=== PATIENT | male | born 1955 | race Hispanic/Latino ===

== ENCOUNTER 2018-09-12 06:02 | Observation (INO) | payer MEDICARE ==
[2018-09-11 11:53] LABS: BASOPHILS # (AUTO) 0.1 (0.0-0.1); BASOPHILS % 0.8 % (0.0-1.0); EOSINOPHILS # (AUTO) 0.2 (0.0-0.4); EOSINOPHILS % 1.9 % (0.0-6.0); HEMATOCRIT 44.6 % (38.2-49.6); HEMOGLOBIN 15.4 g/dL (14.0-18.0); LYMPHOCYTES # (AUTO) 1.3 (1.0-3.2); LYMPHOCYTES % 16.5 % (18.0-39.1); MEAN CORPUSCULAR HEMOGLOBIN 31.6 pg (28-32); MEAN CORPUSCULAR HGB CONC 34.5 g/dL (31-35); MEAN CORPUSCULAR VOLUME 91.6 fL (81-99); MONOCYTES # (AUTO) 0.5 (0.2-0.8); MONOCYTES % 5.8 % (4.4-11.3); NEUTROPHILS # (AUTO) 5.8 (2.1-6.9); NEUTROPHILS % 74.5 % (38.7-80.0); PLATELET COUNT 321 x10e3/uL (140-360); RED BLOOD COUNT 4.87 x10e6/uL (4.3-5.7); RED CELL DISTRIBUTION WIDTH 12.8 % (11.7-14.4)
[2018-09-11 12:10] LABS: ANION GAP 13.3 mmol/L (8-16); BLOOD UREA NITROGEN 14 mg/dL (7-26); BUN/CREATININE RATIO 16 (6-25); CALCIUM 9.8 mg/dL (8.4-10.2); CARBON DIOXIDE 23 mmol/L (22-29); CHLORIDE 104 mmol/L (98-107); CREATININE, SERUM 0.86 mg/dL (0.72-1.25); EST GLOMERULAR FILTRATION RATE > 60 ML/MIN (60-); GLUCOSE 120 mg/dL (74-118); POTASSIUM 4.3 mmol/L (3.5-5.1); SODIUM 136 mmol/L (136-145)
--- NOTE | 2018-09-11 13:20 | Diagnostic Imaging Report ---
EXAMINATION: CHEST SINGLE (PORTABLE) INDICATION: Preoperative. COMPARISON: None FINDINGS: TUBES and LINES: None. LUNGS: Low lung volumes which decreases sensitivity and specificity for pathology. There are patchy opacities at the lung bases bilaterally. No evidence of pulmonary edema. PLEURA: No pleural effusion or pneumothorax. HEART AND MEDIASTINUM: The cardiomediastinal silhouette is unremarkable. There are atherosclerotic calcifications within the aorta. BONES AND SOFT TISSUES: No acute osseous abnormality. UPPER ABDOMEN: No free air under the diaphragm. IMPRESSION: Limited examination of low lung volumes. Patchy opacities in the lung bases may reflect atelectasis, although pneumonia is possible in the appropriate clinical setting. Recommend repeat chest radiograph in 6-8 weeks to assess for resolution. Signed by: Dr. Lay Vargas MD on 09/11/2018 1:17 PM
[~2018-09-12] VITALS: Ht 170.2 cm; Wt 98.0 kg
[~2018-09-12 06:02] MED LIST: SIMVASTATIN40 MG PO
--- OUTSIDE RECORDS SUMMARY | 2018-09-12 06:04 | XMS REPORT ---
Author Author [facility] Address Unknown Phone Unavailable Care Team Providers Care Vending Attendant Name Role Phone IVANA WOLFE Unavailable Unavailable Problems This patient has no known problems. Allergies, Adverse Reactions, Alerts This patient has no known allergies or adverse reactions. Medications This patient has no known medications. Encounters Start Date/Time End Date/Time Encounter Type Admission Type Attending [facility] Care Facility Care Department Encounter ID 2018-09-07 11:42:00 2018-09-07 11:42:00 Emergency E [facility] [id number] Results Test Description Test Time Test Comments Text Results Atomic Results Result Comments CHEST 2 VIEWS 2018-09-11 13:14:00 [place] [address] Patient Name: YUE DAVIS MR #: [id number] : 1955 Age/Sex: 62/M Req #: [id number] Adm Physician: Ordered by: IVANA WOLFE MD Report #: [id number] Location: OR Room/Bed: Procedure: [id number] DX/CHEST 2 VIEWS Exam Date: 09/11/18 Exam Time: 1200 REPORT STATUS: Signed EXAMINATION: CHEST SINGLE (PORTABLE) INDICATION: Preoperative. COMPARISON: None FINDINGS: TUBES and LINES: None. LUNGS: Low lung volumes which decreases sensitivity and specificity for pathology. There are patchy opacities at the lung bases bilaterally. No evidence of pulmonary edema. PLEURA: No pleural effusion or pneumothorax. HEART AND MEDIASTINUM: The cardiomediastinal silhouette is unremarkable. There are atherosclerotic calcifications within the aorta. BONES AND SOFT TISSUES: No acute osseous abnormality. UPPER ABDOMEN: No free air under the diaphragm. IMPRESSION: Limited examination of low lung volumes. Patchy opacities in the lung bases may reflect atelectasis, although pneumonia is possible in the appropriate clinical setting. Recommend repeat chest radiograph in 6-8 weeks to assess for resolution. Signed by: Dr. Maverick Mari MD on 09/11/2018 1:17 PM Dictated By: MAVERICK MARI MD [id number] Transcribed By: JOHN on 09/11/18 1317 COPY TO: IVANA WOLFE MD
--- OUTSIDE RECORDS SUMMARY | 2018-09-12 06:04 | XMS REPORT | Clinical Summary ---
Author Author [facility] Address Unknown Phone Unavailable Care Team Providers Care Cell Tester Name Role Phone Asked, No Pcp PCP Unavailable Allergies No Known Allergies Medications End Date Status Medication Sig Dispensed Refills Start Date Active simvastatin (ZOCOR) 20 MG Take 20 mg by 0 tablet mouth daily. Active amLODIPine (NORVASC) 2.5 TOME DANNY 3 02/04/201 mg tablet TABLETA POR 8 V?A ORAL TODOS LOS D? Active Problems Problem Noted Date Hematuria 02/23/2018 Encounters Care Team Description Date Type Specialty Kwaku Shields MD Hematuria, unspecified type 05/11/2018 Hospital Radiology Encounter Kwaku Shields MD Hematuria, unspecified type (Primary Dx) 04/26/2018 Transcribe Access Orders Isabelle Eldridge NP 02/23/2018 Anesthesia Urology Event Kwaku Shields MD CYSTOSCOPY WITH BILATERAL RETROGRADE PYELOGRAM 02/23/2018 Surgery Urology Kwaku Shields MD 02/23/2018 Hospital Urology Encounter Kwaku Shields MD Preop testing (Primary Dx) 02/22/2018 Pre-Admit Pre-Admission Testing Testing Appointment after 09/11/2017 Social History Date Tobacco Use Types Packs/Day Years Used Never Smoker Smokeless Tobacco: Never Used Alcohol Use Drinks/Week oz/Week Comments No Sex Assigned at Date Recorded Not on file Industry Job Start Date Occupation Not on file Not on file Not on file Travel End Travel History Travel Start No recent travel history available. Last Filed Vital Signs Time Taken Vital Sign Reading 02/23/2018 10:20 AM CDT Blood Pressure 142/64 02/23/2018 10:15 AM CDT Pulse 64 02/23/2018 10:20 AM CDT Temperature 36 C (96.8 F) 02/23/2018 10:20 AM CDT Respiratory Rate 17 02/23/2018 10:15 AM CDT Oxygen Saturation 96% - Inhaled Oxygen - Concentration 05/11/2018 4:08 PM [facility] Weight 95.3 kg (210 lb) 05/11/2018 4:08 PM RAG W[facility]ER Height 170.2 cm (5' 7") 05/11/2018 4:08 PM RAG WASHER Body Mass Index 32.89 Plan of Treatment Health Maintenance Due Date Last Done Comments COLON CANCER SCREENING 2004 SHINGLES VACCINES (#1) 2004 INFLUENZA VACCINE 12/06/2018 Procedures Comments Procedure Name Priority Date/Time Associated Diagnosis CT ABDOMEN W WO CONTRAST Routine 05/11/2018 Hematuria, unspecified PELVIS W WO CONTRAST 5:39 PM RAG W[facility]ER type ESTIMATED GFR Routine 05/11/2018 4:20 PM RAG WASHER POC CREATININE Routine 05/11/2018 4:20 PM RAG WASHER FL PYELOGRAM RETROGRADE Routine 02/23/2018 9:00 AM CDT WY AN ELECTIVE Routine 02/23/2018 SUPRAGLOTTIC AIRWAY 7:51 AM CDT Procedure Note - Magui Duncan CRNA - 02/23/2018 7:51 AM CDT Airway Date/Time: 02/23/2018 7:51 AM Performed by: MAGUI DUNCAN Authorized by: GORDO FAROOQ Location: OR Urgency: Elective Difficult Airway: No Anesthesio logist: GORDO FAROOQ Resident/C RNA/AA: MAGUI DUNCAN Preoxygena [place]ole[place] with 100% O2: Yes C-spine Precaution s Maintained Throughout : Yes Mask Ventilatio n: Not attempted Final Airway Type: Supraglott ic airway Final LMA: I-Gel LMA Size: 4 Number of Attempts at Approach: 1 Eyes taped after LOLR. Atraumatic insertion. Lips and teeth unchanged from preop CYSTOSCOPY 02/23/2018 Prostate cancer (HCC) 7:30 AM CDT Decreased testosterone level Special Needs EST 1HR POC GLUCOSE Routine 02/23/2018 7:01 AM CDT URINE CULTURE Routine 02/22/2018 10:55 AM CDT ECG PRE/POST OP Routine 02/22/2018 Preop testing 10:39 AM CDT URINALYSIS SCREEN AND Routine 02/22/2018 Preop testing MICROSCOPY, WITH REFLEX 10:24 AM CDT TO CULTURE ESTIMATED GFR Routine 02/22/2018 10:23 AM CDT HEMOGLOBIN A1C Routine 02/22/2018 Preop testing 10:23 AM CDT COMPREHENSIVE METABOLIC Routine 02/22/2018 Preop testing PANEL 10:23 AM CDT HC COMPLETE BLD COUNT Routine 02/22/2018 Preop testing W/AUTO DIFF 10:23 AM CDT after 09/11/2017 Results * CT Abdomen W Wo Contrast Pelvis W Wo Contrast (05/11/2018 5:39 PM RAG WASHER) Narrative Performed At EXAMINATION:CT ABDOMEN W WO CONTRAST PELVIS W WO CONTRAST [facility] CLINICAL HISTORY:R31.9 Hematuriaunspecified, R31.0 TECHNIQUE:Noncontrast images of the abdomen and pelvis were obtained. Subsequently, axial images of the abdomen and pelvis were obtained following intravenous administration of iodinated contrast. Multiphase postcontrast images including delayed images and coronal reformats archived and interpreted per CT urogram protocol. Sagittal computerized reformatted images were also obtained. All CT images were acquired using radiation dose lowering technique with automated exposure control and / or iterative reconstruction. COMPARISON: No IMPRESSION: ABDOMEN: 1. Precontrast images demonstrate a nonobstructive 8 mm stone in the upper pole right kidney, of mixed density, with calcium and uric acid density components. 2.No other urinary tract lithiasis identified, though the urinary bladder extends through a right inguinal hernia into the scrotum and beyond the [id number] on the precontrast images. No obstructive uropathy on either side. 3.No abnormal hyperdensity or calcification within either kidney. Moderate to severe fatty liver with sparing adjacent to gallbladder best appreciable on precontrast images. 4.Kidneys enhance symmetrically and normally bilaterally, with mild multifocal scarring bilaterally. No suspicious lesion identified. Symmetric contrast excretion bilaterally. Renal collecting systems and ureters bilaterally and straight nothing unusual, though a short segment of the mid to distal left ureter is not opacified by contrast material, limiting its evaluation. 5.The majority of the urinary bladder is located within the right hemiscrotum via a right inguinal hernia. Overall approximately 12.5 cm craniocaudal dimension of urinary bladder is present within the scrotum and inguinal canal. Wall thickening most pronounced at the level of the inguinal canal accentuated by collapsed state through this segment though no definite bladder mass. Coexistent perivesical stranding suggesting cystitis, can be correlated with urinalysis. TURP defect. Brachytherapy implants in the prostate gland which is diminutive in size. 6.Mild scarring and or atelectasis at lung base, clear. 7. Colonic diverticulosis most pronounced distally. Bowel loops otherwise grossly unremarkable without enteric contrast. 8.Spleen mildly enlarged, without focal lesion. 9.No focal hepatic lesion. Fatty infiltration and sparing as detailed above. 10.Gallbladder, bile ducts, pancreas, spleen, abdominal aorta demonstrates nothing unusual. PELVIS: 1. No free fluid or lymphadenopathy identified in the abdomen or pelvis. 2.Prostate gland and urinary bladder are discussed above. Seminal vesicles atrophic. 3.Visualized bones show no suspicious lesion. SUMMARY: Significant extension of the urinary bladder through right inguinal hernia and into the right hemiscrotum, with probable cystitis which can account for the hematuria and can be correlated with urinalysis. No definite bladder mass is detected. See above for details. A nonobstructive 8 mm mixed density right renal stone and other incidental findings see above. [facility]-[id number] Procedure Note [facility], Radiology Results Incoming - 05/11/2018 6:05 PM RAG WASHER EXAMINATION: CT ABDOMEN W WO CONTRAST PELVIS W WO CONTRAST CLINICAL HISTORY: R31.9 Hematuria unspecified, R31.0 TECHNIQUE: Noncontrast images of the abdomen and pelvis were obtained. Subsequently, axial images of the abdomen and pelvis were obtained following intravenous administration of iodinated contrast. Multiphase postcontrast images including delayed images and coronal reformats archived and interpreted per CT urogram protocol. Sagittal computerized reformatted images were also obtained. All CT images were acquired using radiation dose lowering technique with automated exposure control and / or iterative reconstruction. COMPARISON: No IMPRESSION: ABDOMEN: 1. Precontrast images demonstrate a nonobstructive 8 mm stone in the upper pole right kidney, of mixed density, with calcium and uric acid density components. 2. No other urinary tract lithiasis identified, though the urinary bladder extends through a right inguinal hernia into the scrotum and beyond the [id number] on the precontrast images. No obstructive uropathy on either side. 3. No abnormal hyperdensity or calcification within either kidney. Moderate to severe fatty liver with sparing adjacent to gallbladder best appreciable on precontrast images. 4. Kidneys enhance symmetrically and normally bilaterally, with mild multifocal scarring bilaterally. No suspicious lesion identified. Symmetric contrast excretion bilaterally. Renal collecting systems and ureters bilaterally and straight nothing unusual, though a short segment of the mid to distal left ureter is not opacified by contrast material, limiting its evaluation. 5. The majority of the urinary bladder is located within the right hemiscrotum via a right inguinal hernia. Overall approximately 12.5 cm craniocaudal dimension of urinary bladder is present within the scrotum and inguinal canal. Wall thickening most pronounced at the level of the inguinal canal accentuated by collapsed state through this segment though no definite bladder mass. Coexistent perivesical stranding suggesting cystitis, can be correlated with urinalysis. TURP defect. Brachytherapy implants in the prostate gland which is diminutive in size. 6. Mild scarring and or atelectasis at lung base, clear. 7. Colonic diverticulosis most pronounced distally. Bowel loops otherwise grossly unremarkable without enteric contrast. 8. Spleen mildly enlarged, without focal lesion. 9. No focal hepatic lesion. Fatty infiltration and sparing as detailed above. 10. Gallbladder, bile ducts, pancreas, spleen, abdominal aorta demonstrates nothing unusual. PELVIS: 1. No free fluid or lymphadenopathy identified in the abdomen or pelvis. 2. Prostate gland and urinary bladder are discussed above. Seminal vesicles atrophic. 3. Visualized bones show no suspicious lesion. SUMMARY: Significant extension of the urinary bladder through right inguinal hernia and into the right hemiscrotum, with probable cystitis which can account for the hematuria and can be correlated with urinalysis. No definite bladder mass is detected. See above for details. A nonobstructive 8 mm mixed density right renal stone and other incidental findings see above. [facility]-[id number] Performing Organization Address City/State/Zipcode Phone Number [facility] [address] [place] [address] * Estimated GFR (05/11/2018 4:20 PM RAG WASHER) Only the most recent of 2 results within the time period is included. Estimated GFR >=90 mL/min/1.73 m2 JOSR TINAJERO Comment: HOSPITAL CatergoryUnitsInte rpretation G1 >=90 Normal or high G2 60-89Mildly decreased [id number] Mildly to moderately decreased [id number] Moderately to severely decreased G4 15-29Severely decreased G5 <15Kidney failure The eGFR was calculated using the Chronic Kidney Disease Epidemiology Collaboration (CKD-EPI) equation. Interpretation is based on recommendations of the National Kidney Foundation-Kidney Disease Outcomes Quality Initiative (NKF-KDOQI) published in 2014. Specimen Blood Performing Organization Address City/[facility] Phone Number [facility] [place] [address] PATHOLOGY AND GENOMIC MEDICINE [address] * POC creatinine (05/11/2018 4:20 PM RAG WASHER) POC creatinine 0.8 0.7 - 1.2 mg/dl JOSR CLARKIST Comment: HOSPITAL Meter ID: [id number] Director New Product: Neal Farias Specimen Blood Performing Organization Address [facility] Phone Number [facility] [place] [address] PATHOLOGY AND GENOMIC MEDICINE [address] * [place] Pyelogram Retrograde (02/23/2018 9:00 AM CDT) Narrative Performed At IMPRESSION: [facility] Fluoroscopy time was provided in the operating room. 6 spot fluoroscopic images were obtained. No fluoroscopy time is provided. Please refer to operative report for findings. Procedure Note Interface, Radiology Results Incoming - 02/23/2018 10:36 PM CDT IMPRESSION: Fluoroscopy time was provided in the operating room. 6 spot fluoroscopic images were obtained. No fluoroscopy time is provided. Please refer to operative report for findings. Performing Organization Address [facility] Phone Number [facility] [address] [place] [address] * POC glucose (02/23/2018 7:01 AM CDT) POC glucose 108 (H) 65 - 99 mg/dL [facility] DEPARTMENT OF Comment: PATHOLOGY AND No Action Needed GENOMIC MEDICINE Meter ID: [id number] Director New Product: Berny Camilo Performing Organization Address City/[facility]/Zipcode Phone Number [facility] [place] [address] PATHOLOGY AND GENOMIC MEDICINE * Urine culture (02/22/2018 10:55 AM CDT) Urine culture SEE COMMENTComment: [facility] DEPARTMENT OF Bacteriuria screen negative. PATHOLOGY AND GENOMIC MEDICINE Performing Organization Address City/[facility] Phone Number [facility] DEPARTMENT OF [address] [place] [id number] PATHOLOGY AND [facility] MEDICINE * ECG Pre/Post Op (02/22/2018 10:39 AM CDT) Ventricular rate 62 [facility] MUSE Atrial rate 62 [facility] MUSE WY interval 154 [facility] QRSD interval 78 [facility] QT interval 436 [facility] QTC interval 442 [facility] P axis 1 20 [facility] QRS axis 1 37 [facility] T wave axis 49 [facility] EKG impression Normal sinus rhythm-Normal [facility] ECG- Performing Organization Address City/[facility] Phone Number [facility] [address] [place] [address] * Urinalysis screen and microscopy, with reflex to culture (02/22/2018 10:24 AM CDT) Specimen site Clean catch [facility] DEPARTMENT OF PATHOLOGY AND GENOMIC MEDICINE Color, UA Yellow [facility] DEPARTMENT OF PATHOLOGY AND GENOMIC MEDICINE Appearance, UA Clear [facility] DEPARTMENT OF PATHOLOGY AND GENOMIC MEDICINE Specific gravity, UA 1.018 1.001 - 1.035 [facility] DEPARTMENT OF PATHOLOGY AND GENOMIC MEDICINE pH, UA 5.0 5.0 - 8.5 [facility] DEPARTMENT OF PATHOLOGY AND GENOMIC MEDICINE Protein, UA Negative Negative [facility] DEPARTMENT OF PATHOLOGY AND GENOMIC MEDICINE Glucose, UA Negative Negative [facility] DEPARTMENT OF PATHOLOGY AND GENOMIC MEDICINE Ketones, UA Negative Negative [facility] DEPARTMENT OF PATHOLOGY AND GENOMIC MEDICINE Bilirubin, UA Negative Negative [facility] DEPARTMENT OF PATHOLOGY AND GENOMIC MEDICINE Blood, UA Small (A) Negative [facility] DEPARTMENT OF PATHOLOGY AND GENOMIC MEDICINE Nitrite, UA Negative Negative [facility] DEPARTMENT OF PATHOLOGY AND GENOMIC MEDICINE Urobilinogen, UA <2.0 <2.0 [facility] DEPARTMENT OF PATHOLOGY AND GENOMIC MEDICINE Leukocyte esterase, UA Negative Negative [facility] DEPARTMENT OF PATHOLOGY AND GENOMIC MEDICINE WBC, UA 1 0 - 1 /HPF [facility] DEPARTMENT OF PATHOLOGY AND GENOMIC MEDICINE RBC, UA 5 0 - 5 /HPF [facility] DEPARTMENT OF PATHOLOGY AND GENOMIC MEDICINE Bacteria, UA None seen None seen [facility] DEPARTMENT OF PATHOLOGY AND GENOMIC MEDICINE Yeast, UA None seen [facility] DEPARTMENT OF PATHOLOGY AND GENOMIC MEDICINE Yeast with pseudohyphae, None seen [facility] DEPARTMENT [facility] PATHOLOGY AND GENOMIC MEDICINE Specimen Urine Performing Organization Address City/[facility]/Zipcode Phone Number [address] [address] PATHOLOGY AND GENOMIC MEDICINE * CBC with platelet and differential (02/22/2018 10:23 AM CDT) WBC 6.67 4.50 - 11.00 k/uL [facility] DEPARTMENT OF PATHOLOGY AND GENOMIC MEDICINE RBC 4.85 4.40 - 6.00 m/uL [facility] DEPARTMENT OF PATHOLOGY AND GENOMIC MEDICINE HGB 14.8 14.0 - 18.0 g/dL [facility] DEPARTMENT OF PATHOLOGY AND GENOMIC MEDICINE HCT 44.8 41.0 - 51.0 % [facility] DEPARTMENT OF PATHOLOGY AND GENOMIC MEDICINE MCV 92.4 82.0 - 100.0 fL [facility] DEPARTMENT OF PATHOLOGY AND GENOMIC MEDICINE MCH 30.5 27.0 - 34.0 pg [facility] DEPARTMENT OF PATHOLOGY AND GENOMIC MEDICINE MCHC 33.0 31.0 - 37.0 g/dL [facility] DEPARTMENT OF PATHOLOGY AND GENOMIC MEDICINE RDW - SD 44.7 37.0 - 55.0 fL [facility] DEPARTMENT OF PATHOLOGY AND GENOMIC MEDICINE MPV 10.5 8.8 - 13.2 fL [facility] DEPARTMENT OF PATHOLOGY AND GENOMIC MEDICINE Platelet count 308 150 - 400 k/uL [facility] DEPARTMENT OF PATHOLOGY AND GENOMIC MEDICINE Nucleated RBC 0.00 /100 WBC [facility] DEPARTMENT OF PATHOLOGY AND GENOMIC MEDICINE Neutrophils 70.6 (H) 39.0 - 69.0 % [facility] DEPARTMENT OF PATHOLOGY AND GENOMIC MEDICINE Lymphocytes 20.4 (L) 25.0 - 45.0 % [facility] DEPARTMENT OF PATHOLOGY AND GENOMIC MEDICINE Monocytes 7.2 0.0 - 10.0 % [facility] DEPARTMENT OF PATHOLOGY AND GENOMIC MEDICINE Eosinophils 0.6 0.0 - 5.0 % [facility] DEPARTMENT OF PATHOLOGY AND GENOMIC MEDICINE Basophils 0.9 0.0 - 1.0 % [facility] DEPARTMENT OF PATHOLOGY AND GENOMIC MEDICINE Immature granulocytes 0.3Comment: "Immature 0.0 - 1.0 % [facility] DEPARTMENT OF granulocytes" (promyelocytes, PATHOLOGY AND myelocytes, metamyelocytes) GENOMIC MEDICINE Specimen Blood Performing Organization Address City/State/Zipcode Phone Number [address] [address] PATHOLOGY AND GENOMIC MEDICINE * Hemoglobin A1c (02/22/2018 10:23 AM CDT) Hemoglobin A1C 5.9 (H) 4.0 - 5.6 % [facility] DEPARTMENT OF Comment: PATHOLOGY AND HbA1c cutoffs for diagnosing GENOMIC MEDICINE diabetes: 4.0% - 5.6%=normal 5.7% - 6.4%=increased risk for diabetes (prediabetes) >=6.5%=diabetes Goals for glycemic control (ADA 2016) < 7.0%Target for non adults with diabetes. More or less stringent targets may be appropriate for individual patients. <7.5% Target for Children and adolescents with type 1 diabetes. Specimen Blood Performing Organization Address City/State/Zipcode Phone Number [place] [phone] [place] [address] PATHOLOGY AND GENOMIC MEDICINE * Comprehensive metabolic panel (02/22/2018 10:23 AM CDT) Sodium 141 135 - 148 mEq/L [facility] DEPARTMENT OF PATHOLOGY AND GENOMIC MEDICINE Potassium 3.9 3.5 - 5.0 mEq/L [facility] DEPARTMENT OF PATHOLOGY AND GENOMIC MEDICINE Chloride 103 98 - 112 mEq/L [facility] DEPARTMENT OF PATHOLOGY AND GENOMIC MEDICINE CO2 24 24 - 31 mEq/L [facility] DEPARTMENT OF PATHOLOGY AND GENOMIC MEDICINE Anion gap 14@ANIO 7 - 15 mEq/L [facility] DEPARTMENT OF PATHOLOGY AND GENOMIC MEDICINE BUN 12 8 - 23 mg/dL [facility] DEPARTMENT OF PATHOLOGY AND GENOMIC MEDICINE Creatinine 0.80 0.70 - 1.20 mg/dL [facility] DEPARTMENT OF PATHOLOGY AND GENOMIC MEDICINE Glucose 108 (H) 65 - 99 mg/dL [facility] DEPARTMENT OF PATHOLOGY AND GENOMIC MEDICINE Calcium 9.5 8.8 - 10.2 mg/dL [facility] DEPARTMENT OF PATHOLOGY AND GENOMIC MEDICINE Protein 7.5 6.3 - 8.3 g/dL [facility] DEPARTMENT OF Comment: PATHOLOGY AND [place] GENOMIC MEDICINE 4.6-7.0 g/dL 1 week 4.4-7.6 g/dL 7 months-1year 5.1-7.3 g/dL 1-2 years5.6-7 .5 g/dL >3 years6.0-8 .0 g/dL 18-150 6.3-8.3 g/dL Albumin 3.6 3.5 - 5.0 g/dL [facility] DEPARTMENT OF PATHOLOGY AND GENOMIC MEDICINE A/G ratio 0.9 0.7 - 3.8 [facility] DEPARTMENT OF PATHOLOGY AND GENOMIC MEDICINE Alkaline phosphatase 80 40 - 129 U/L [facility] DEPARTMENT OF PATHOLOGY AND GENOMIC MEDICINE AST 52 (H) 10 - 50 U/L [facility] DEPARTMENT OF PATHOLOGY AND GENOMIC MEDICINE ALT 103 (H) 5 - 50 U/L [facility] DEPARTMENT OF PATHOLOGY AND GENOMIC MEDICINE Total bilirubin 0.9 0.0 - 1.2 mg/dL [facility] DEPARTMENT OF PATHOLOGY AND GENOMIC MEDICINE Specimen Plasma specimen Performing Organization Address City/State/Zipcode Phone Number [facility] DEPARTMENT OF [address] [place] [address] PATHOLOGY AND GENOMIC MEDICINE after 09/11/2017 Insurance Payer Benefit Subscriber ID Type Phone Address Plan / Group AETNA MEDICARE AETNA xxxxxxxx HMO MEDICARE HMO/PPO [facility] Advance Directives Patient has advance care planning documents on file. For more information, lin cabello contact: Josr Tinajero [address] [place] [address]
[2018-09-12] MEDS ORDERED: BELLADONNA/OPIUM 60 MG SUPP PR ONE (07:58)
[2018-09-12] MEDS ORDERED: IOPAMIDOL 300MG/ML 50ML INFUS..BTL IV ONE (07:58)
[2018-09-12] MEDS ORDERED: BUPIVACAINE 0.25%/EPI 30ML SDV INJ ONE (07:58)
[2018-09-12] MEDS ORDERED: CEFAZOLIN SOD 2 GM/D5W 50ML 50 ML IV ONE (08:09)
[2018-09-12] MEDS ORDERED: ACETAMINOPHEN 1000 MG/100 ML 100 ML IV ONE (09:46)
[2018-09-12] MEDS ORDERED: HYDROCODONE/APAP 7.5MG-325MG 1 EA TAB PO PRN (12:15)
[2018-09-12] MEDS ORDERED: ONDANSETRON HCL INJ 2MG/ML 2ML 2 MG/ML VIAL IV PRN (12:15)
[2018-09-12] MEDS ORDERED: LACTATED RINGER'S 1,000 ML IV ONE (12:15)
--- OUTSIDE RECORDS SUMMARY | 2018-09-12 12:18 | XMS REPORT | Clinical Summary ---
Author Author [facility] Organization [facility] Address Unknown Phone Unavailable Care Team Providers Care Mortar Mixer Operator Name Role Phone Asked, No Pcp PCP [...] Inhaled Oxygen - Concentration 05/11/2018 4:08 PM DISABILITY ADVOCATE Weight 95.3 kg (210 lb) 05/11/2018 4:08 PM DISABILITY ADVOCATE Height 170.2 cm (5' 7") 05/11/2018 4:08 PM DISABILITY ADVOCATE Body Mass Index 32.89 Plan of Treatment Health Maintenance Due Date Last Done Comments COLON CANCER SCREENING 2004 SHINGLES VACCINES (#1) 2004 INFLUENZA VACCINE 12/06/2018 Procedures Comments Procedure Name Priority Date/Time Associated Diagnosis CT ABDOMEN W WO CONTRAST Routine 05/11/2018 Hematuria, unspecified PELVIS W WO CONTRAST 5:39 PM DISABILITY ADVOCATE type ESTIMATED GFR Routine 05/11/2018 4:20 PM DISABILITY ADVOCATE POC CREATININE Routine 05/11/2018 4:20 PM DISABILITY ADVOCATE FL PYELOGRAM RETROGRADE Routine 02/23/2018 9:00 AM CDT [place] AN ELECTIVE Routine 02/23/2018 SUPRAGLOTTIC AIRWAY 7:51 AM CDT Procedure Note - Magui Duncan CRNA - 02/23/2018 7:51 AM CDT Airway Date/Time: 02/23/2018 7:51 AM Performed by: MAGUI DUNCAN Authorized by: GRODO FAROOQ Location: OR Urgency: Elective Difficult Airway: [...] Pelvis W Wo Contrast (05/11/2018 5:39 PM DISABILITY ADVOCATE) Narrative Performed At EXAMINATION:CT ABDOMEN W WO [...] hernia into the scrotum and beyond the oyqyo-[id number]-jeqz on the precontrast images. No obstructive uropathy [...] stone and other incidental findings see above. [facility]-[id number] Procedure Note [facility], Radiology Results Incoming - 05/11/2018 6:05 PM DISABILITY ADVOCATE EXAMINATION: CT ABDOMEN W WO CONTRAST PELVIS [...] hernia into the scrotum and beyond the [id number] on the precontrast images. No obstructive uropathy [...] stone and other incidental findings see above. [facility]-[id number] Performing Organization Address City/State/Zipcode Phone Number [facility] [address] [place] [address] * Estimated GFR (05/11/2018 4:20 PM DISABILITY ADVOCATE) Only the most recent of 2 results within the time period is included. Estimated GFR >=90 mL/min/1.73 m2 JOSR TINAJERO Comment: HOSPITAL CatergoryUnitsInte rpretation G1 >=90 Normal or high G2 60-89Mildly decreased [id number] Mildly to moderately decreased [id number] Moderately to severely decreased G4 15-29Severely decreased G5 <15Kidney failure The eGFR was calculated using the Chronic Kidney Disease Epidemiology Collaboration (CKD-EPI) equation. Interpretation is based on recommendations of the National Kidney Foundation-Kidney Disease Outcomes Quality Initiative (NKF-KDOQI) published in 2014. Specimen Blood Performing Organization Address City/[facility] Phone Number [facility] [place] [address] PATHOLOGY AND GENOMIC MEDICINE [address] * POC creatinine (05/11/2018 4:20 PM DISABILITY ADVOCATE) POC creatinine 0.8 0.7 - 1.2 mg/dl JOSR CLARKIST Comment: HOSPITAL Meter ID: [id number] Bed Spring Maker: Neal Farias Specimen Blood Performing Organization Address [facility] Phone Number [facility] [place] [address] PATHOLOGY AND GENOMIC MEDICINE [address] * [place] Pyelogram Retrograde (02/23/2018 9:00 [...] operative report for findings. Performing Organization Address [facility] Phone Number [facility] [address] [place] [address] * POC glucose (02/23/2018 7:01 AM CDT) POC glucose 108 (H) 65 - 99 mg/dL [facility] DEPARTMENT OF Comment: PATHOLOGY AND No Action Needed GENOMIC MEDICINE Meter ID: [id number] Bed Spring Maker: Berny Camilo Performing Organization Address City/[facility]/Zipcode Phone Number [facility] [place] [address] PATHOLOGY AND GENOMIC MEDICINE * Urine culture (02/22/2018 10:55 AM CDT) Urine culture SEE COMMENTComment: [facility] DEPARTMENT OF Bacteriuria screen negative. PATHOLOGY AND GENOMIC MEDICINE Performing Organization Address City/[facility] Phone Number [facility] DEPARTMENT OF [address] [place] [phone] PATHOLOGY AND [facility] MEDICINE * ECG Pre/Post Op (02/22/2018 10:39 AM CDT) Ventricular rate 62 [facility] MUSE Atrial rate 62 [facility] MUSE [place] interval 154 [facility] MUSE QRSD interval 78 [facility] MUSE QT interval 436 [facility] MUSE QTC interval 442 [facility] MUSE P axis 1 20 [facility] MUSE QRS axis 1 37 [facility] MUSE T wave axis 49 [facility] MUSE EKG impression Normal sinus rhythm-Normal [facility] MUSE ECG- Performing Organization Address City/[facility] Phone Number [facility] [address] [place] [address] * Urinalysis screen and microscopy, with reflex to culture (02/22/2018 10:24 AM CDT) Specimen site Clean catch [facility] DEPARTMENT OF PATHOLOGY AND GENOMIC MEDICINE Color, UA Yellow [facility] DEPARTMENT OF PATHOLOGY AND GENOMIC MEDICINE Appearance, UA Clear [facility] DEPARTMENT OF PATHOLOGY AND GENOMIC MEDICINE Specific gravity, UA 1.018 1.001 - 1.035 [facility] DEPARTMENT OF PATHOLOGY AND GENOMIC MEDICINE pH, UA 5.0 5.0 - 8.5 [facility] DEPARTMENT OF PATHOLOGY AND GENOMIC MEDICINE Protein, UA Negative Negative [facility] DEPARTMENT OF PATHOLOGY AND GENOMIC MEDICINE Glucose, UA Negative Negative [facility] DEPARTMENT OF PATHOLOGY AND GENOMIC MEDICINE Ketones, UA Negative Negative [facility] DEPARTMENT OF PATHOLOGY AND GENOMIC MEDICINE Bilirubin, UA Negative Negative [facility] DEPARTMENT OF PATHOLOGY AND GENOMIC MEDICINE Blood, UA Small (A) Negative [facility] DEPARTMENT OF PATHOLOGY AND GENOMIC MEDICINE Nitrite, UA Negative Negative [facility] DEPARTMENT OF PATHOLOGY AND GENOMIC MEDICINE Urobilinogen, UA <2.0 <2.0 [facility] DEPARTMENT OF PATHOLOGY AND GENOMIC MEDICINE Leukocyte esterase, UA Negative Negative [facility] DEPARTMENT OF PATHOLOGY AND GENOMIC MEDICINE WBC, UA 1 0 - 1 /HPF [facility] DEPARTMENT OF PATHOLOGY AND GENOMIC MEDICINE RBC, UA 5 0 - 5 /HPF [facility] DEPARTMENT OF PATHOLOGY AND GENOMIC MEDICINE Bacteria, UA None seen None seen [facility] DEPARTMENT OF PATHOLOGY AND GENOMIC MEDICINE Yeast, UA None seen [facility] DEPARTMENT OF PATHOLOGY AND GENOMIC MEDICINE Yeast with pseudohyphae, None seen [facility] DEPARTMENT [facility] PATHOLOGY AND GENOMIC MEDICINE Specimen Urine Performing Organization Address City/[facility]/Zipcode Phone Number [address] [address] PATHOLOGY AND GENOMIC MEDICINE * CBC with platelet and differential (02/22/2018 10:23 AM CDT) WBC 6.67 4.50 - 11.00 k/uL [facility] DEPARTMENT OF PATHOLOGY AND GENOMIC MEDICINE RBC 4.85 4.40 - 6.00 m/uL [facility] DEPARTMENT OF PATHOLOGY AND GENOMIC MEDICINE HGB 14.8 14.0 - 18.0 g/dL [facility] DEPARTMENT OF PATHOLOGY AND GENOMIC MEDICINE HCT 44.8 41.0 - 51.0 % [facility] DEPARTMENT OF PATHOLOGY AND GENOMIC MEDICINE MCV 92.4 82.0 - 100.0 fL [facility] DEPARTMENT OF PATHOLOGY AND GENOMIC MEDICINE MCH 30.5 27.0 - 34.0 pg [facility] DEPARTMENT OF PATHOLOGY AND GENOMIC MEDICINE MCHC 33.0 31.0 - 37.0 g/dL [facility] DEPARTMENT OF PATHOLOGY AND GENOMIC MEDICINE RDW - SD 44.7 37.0 - 55.0 fL [facility] DEPARTMENT OF PATHOLOGY AND GENOMIC MEDICINE MPV 10.5 8.8 - 13.2 fL [facility] DEPARTMENT OF PATHOLOGY AND GENOMIC MEDICINE Platelet count 308 150 - 400 k/uL [facility] DEPARTMENT OF PATHOLOGY AND GENOMIC MEDICINE Nucleated RBC 0.00 /100 WBC [facility] DEPARTMENT OF PATHOLOGY AND GENOMIC MEDICINE Neutrophils 70.6 (H) 39.0 - 69.0 % [facility] DEPARTMENT OF PATHOLOGY AND GENOMIC MEDICINE Lymphocytes 20.4 (L) 25.0 - 45.0 % [facility] DEPARTMENT OF PATHOLOGY AND GENOMIC MEDICINE Monocytes 7.2 0.0 - 10.0 % [facility] DEPARTMENT OF PATHOLOGY AND GENOMIC MEDICINE Eosinophils 0.6 0.0 - 5.0 % [facility] DEPARTMENT OF PATHOLOGY AND GENOMIC MEDICINE Basophils 0.9 0.0 - 1.0 % [facility] DEPARTMENT OF PATHOLOGY AND GENOMIC MEDICINE Immature granulocytes 0.3Comment: "Immature 0.0 - 1.0 % [facility] DEPARTMENT OF granulocytes" (promyelocytes, PATHOLOGY AND myelocytes, metamyelocytes) GENOMIC MEDICINE Specimen Blood Performing Organization Address City/State/Zipcode Phone Number [address] [address] PATHOLOGY AND GENOMIC MEDICINE * Hemoglobin A1c (02/22/2018 10:23 AM CDT) Hemoglobin A1C 5.9 (H) 4.0 - 5.6 % [facility] DEPARTMENT OF Comment: PATHOLOGY AND HbA1c cutoffs [...] Blood Performing Organization Address City/State/Zipcode Phone Number [place] [phone] [place] [address] PATHOLOGY AND GENOMIC MEDICINE * Comprehensive metabolic panel (02/22/2018 10:23 AM CDT) Sodium 141 135 - 148 mEq/L [facility] DEPARTMENT OF PATHOLOGY AND GENOMIC MEDICINE Potassium 3.9 3.5 - 5.0 mEq/L [facility] DEPARTMENT OF PATHOLOGY AND GENOMIC MEDICINE Chloride 103 98 - 112 mEq/L [facility] DEPARTMENT OF PATHOLOGY AND GENOMIC MEDICINE CO2 24 24 - 31 mEq/L [facility] DEPARTMENT OF PATHOLOGY AND GENOMIC MEDICINE Anion gap 14@ANIO 7 - 15 mEq/L [facility] DEPARTMENT OF PATHOLOGY AND GENOMIC MEDICINE BUN 12 8 - 23 mg/dL [facility] DEPARTMENT OF PATHOLOGY AND GENOMIC MEDICINE Creatinine 0.80 0.70 - 1.20 mg/dL [facility] DEPARTMENT OF PATHOLOGY AND GENOMIC MEDICINE Glucose 108 (H) 65 - 99 mg/dL [facility] DEPARTMENT OF PATHOLOGY AND GENOMIC MEDICINE Calcium 9.5 8.8 - 10.2 mg/dL [facility] DEPARTMENT OF PATHOLOGY AND GENOMIC MEDICINE Protein 7.5 6.3 - 8.3 g/dL [facility] DEPARTMENT OF Comment: PATHOLOGY AND Hana GENOMIC MEDICINE 4.6-7.0 g/dL 1 week 4.4-7.6 g/dL 7 months-1year 5.1-7.3 g/dL 1-2 years5.6-7 .5 g/dL >3 years6.0-8 .0 g/dL 18-150 6.3-8.3 g/dL Albumin 3.6 3.5 - 5.0 g/dL [facility] DEPARTMENT OF PATHOLOGY AND GENOMIC MEDICINE A/G ratio 0.9 0.7 - 3.8 [facility] DEPARTMENT OF PATHOLOGY AND GENOMIC MEDICINE Alkaline phosphatase 80 40 - 129 U/L [facility] DEPARTMENT OF PATHOLOGY AND GENOMIC MEDICINE AST 52 (H) 10 - 50 U/L [facility] DEPARTMENT OF PATHOLOGY AND GENOMIC MEDICINE ALT 103 (H) 5 - 50 U/L [facility] DEPARTMENT OF PATHOLOGY AND GENOMIC MEDICINE Total bilirubin 0.9 0.0 - 1.2 mg/dL [facility] DEPARTMENT OF PATHOLOGY AND GENOMIC MEDICINE Specimen Plasma specimen Performing Organization Address City/State/Zipcode Phone Number [facility] DEPARTMENT OF [address] [place] [address] PATHOLOGY AND GENOMIC MEDICINE after 09/11/2017 Insurance Payer Benefit Subscriber ID Type Phone Address Plan / Group AETNA MEDICARE AETNA xxxxxxxx HMO MEDICARE HMO/PPO [facility] Advance Directives Patient has advance care planning documents on file. For more information, lin cabello contact: Josr Tinajero [address] [place] [address]
--- NOTE | 2018-09-12 12:36 | Operative Report ---
DATE OF PROCEDURE: 09/12/2018 SURGEON: Gaudencio Chawla MD PREOPERATIVE DIAGNOSIS: Incarcerated right inguinal scrotal hernia with urinary bladder in it. POSTOPERATIVE DIAGNOSES: Incarcerated right inguinal scrotal hernia with either omentum of large bowel in it. There was no evidence of urinary bladder into the right hemiscrotum herniation at this time. PROCEDURE PERFORMED: Exploration of right groin and reduction of incarcerated inguinal scrotal hernia, repair of right inguinal scrotal hernia with Ultrapro hernia system oval type mass. MARINE EQUIPMENT PRESERVATION INSPECTOR: Martin Esteban, licensed surgical oncologist. ESTIMATED BLOOD LOSS: Minimal. DRAINS: None. COMPLICATIONS: None. INDICATION AND FINDINGS: The patient is a 62-year-old male, who was found to have a right inguinal hernia with extension into the scrotum by his urologist, Dr. Shields. He underwent preoperative as an outpatient cystoscopy and it was found that the urinary bladder was herniated into the right hemiscrotum. INTRAOPERATIVE FINDINGS: Incarcerated right inguinal scrotal hernia with herniation of either large bowel or omentum. At the time of my exploration, there was no evidence of herniation of the small bowel. There was no evidence of herniation of the urinary bladder into the right hemiscrotum. Preoperatively, the patient underwent cystoscopies by Dr. Shields and he had placement of a 20-Yi Mcgill catheter as per Urology request obtaining clear urine. Dr. Kwaku Shields will dictate the operative part of his procedure. DESCRIPTION OF PROCEDURE: With the patient lying on the operative table in the supine position and after administration of general endotracheal anesthesia, he was prepped and draped for repair of right inguinal scrotal hernia. Preemptive anesthesia was given as an ilioinguinal nerve block and an incisional nerve block. A transverse groin incision was made, deepened through the skin, subcutaneous tissue, Saadia fascia until the external oblique aponeurosis was identified. This was incised along the course of the fibers transecting the external inguinal ring. Medial and lateral leaves were developed. The cord was mobilized at the level of the pubic tubercle and retracted away with a Kim drain. The herniation into the scrotum was then reduced into the right groin. There was no bladder present but rather what appeared to be either bowel, omentum, I could not tell which one it was. Most likely this patient was herniating his urinary bladder into the scrotum intermittently or hiatal herniation should that reduce itself. At any rate, we proceeded with the procedure. We then the herniation from the cord. This was a sliding type of hernia, so we did not open the sac. We were able to reduce all of the herniation into the preperitoneal space. We had to transect the cremaster fibers in order to reduce the hernia into the preperitoneal space. After we reduced the hernia, we created a pocket to accommodate the Ultrapro hernia system oval type. We deployed the underlay part of the mesh over the direct space in a TachoSil fashion. There was no evidence of femoral herniation. We then deployed the overlay part of the mesh over the inguinal canal floor, then we made a slit to accommodate the cord and secured the mesh to local tissues using a series of interrupted 2-0 Ethibond sutures, which were also used to close the slit of the port. The mesh laid flat in the inguinal canal floor. There was no tension. After we secured the mesh, we irrigated the wound copiously, infiltrated the operative field again with 0.25% Marcaine with epinephrine for a total of 60 mL throughout the procedure. We then copiously irrigated the wound after we ascertained there was no bleeding. We closed the wound in layers using 2-0 Vicryl for the soft tissues, and then the skin was closed using stacey. The patient tolerated the procedure well, taken to the recovery room in stable condition. The family was informed of intraoperative findings. At the end of the procedure, the sponge and instrument count were pronounced correct. MD JEAN Anna/GAGAN /[id number]
[2018-09-12 13:51] VITALS: BP 150/67
[2018-09-12 13:57] VITALS: BP 150/67
[2018-09-12 16:27] VITALS: BP 139/64
[2018-09-12] MEDS ORDERED: TYLENOL WITH C1 EACH PO (18:19)
[2018-09-12] MEDS ORDERED: PHENERGAN25 MG/1 ML PO (18:20)
[2018-09-12] MEDS ORDERED: FENTANYL CITRATE/PF 100MCG/2 ML INJ ONE (18:21)
[2018-09-12] MEDS ORDERED: MIDAZOLAM HCL 2 MG/2 ML VIAL ONE (18:21)
--- NOTE | 2018-09-12 18:30 | NUR ---
patient alert and oriented. discharge instructions given to patient and , both verbalized understanding. IV discontinued at this time, catheter in tact and small dressing applied. patient to be wheeled to personal auto for to drive home.
[2018-09-12] MEDS ORDERED: ONDANSETRON HCL INJ 2MG/ML 2ML 2 MG/ML VIAL ONE (18:34)
[2018-09-12] MEDS ORDERED: DEXAMETHASONE SOD PHOS INJ 4 MG/ML VIAL ONE (18:34)
[2018-09-12] MEDS ORDERED: PROPOFOL IV EMULSION 10 MG/ML 20 ML VIAL ONE (18:34)
[2018-09-12] MEDS ORDERED: LIDOCAINE HCL 2% LOCAL INJ 5 ML SDV VIAL INJ ONE (18:34)
[2018-09-12] MEDS ORDERED: ROCURONIUM BROMIDE 10 MG/ML 5ML VIAL ONE (18:34)
[2018-09-12] MEDS ORDERED: SEVOFLURANE INHAL SOLN 250 ML PEN BTL ONE (18:34)
== END 2018-09-12 18:50 | disposition home or self-care (01) ==
LOC: OR 06:02 → PACU V 12:07 → IMCU 13:18
PROVIDERS: ADMIT Surgery; ATTEND Surgery
DX: K40.30 Unilateral inguinal hernia, with obstruction, without gangrene, not specified as recurrent (principal); I10 Essential (primary) hypertension; K21.9 Gastro-esophageal reflux disease without esophagitis; E78.00 Pure hypercholesterolemia, unspecified; Z85.46 Personal history of malignant neoplasm of prostate
CPT/HCPCS: 36415; 49507; 71046; 74420; 80048; 85025; 93005; C1758; C1781; G0378; J0131; J0690; J1100; J2001; J2250; J2405; J2704; Q9967

== ENCOUNTER → 2018-11-12 | Outpatient (CLI) | payer MEDICARE ==
[~2018-11-12] MED LIST changes: +PHENERGAN25 MG/1 ML PO; +TYLENOL WITH C1 EACH PO
--- NOTE | 2018-11-12 17:25 | Diagnostic Imaging Report ---
Exam: KUB - 2 views Clinical History: Renal calculi Comparison: None Findings: Nonobstructive bowel gas pattern. No evidence of free intraperitoneal air. No evidence of abnormal calcification. No acute bony abnormality. Impression: No acute radiographic abnormality. Signed by: Magi Jin MD on 11/12/2018 5:22 PM
== END ==
LOC: RAD 15:56
PROVIDERS: ATTEND Urology
DX: N20.0 Calculus of kidney (principal)
CPT/HCPCS: 74018

== ENCOUNTER → 2019-02-14 | Day surgery (SDC) | payer MEDICARE ==
[2019-02-11 17:01] LABS: ANION GAP 12.7 mmol/L (8-16); BLOOD UREA NITROGEN 9 mg/dL (7-26); BUN/CREATININE RATIO 11 (6-25); CALCIUM 9.2 mg/dL (8.4-10.2); CARBON DIOXIDE 25 mmol/L (22-29); CHLORIDE 105 mmol/L (98-107); CREATININE, SERUM 0.83 mg/dL (0.72-1.25); EST GLOMERULAR FILTRATION RATE > 60 ML/MIN (60-); GLUCOSE 119 mg/dL (74-118); POTASSIUM 3.7 mmol/L (3.5-5.1); SODIUM 139 mmol/L (136-145)
--- NOTE | 2019-02-11 17:17 | Diagnostic Imaging Report ---
Exam: KUB - 2 views Indication: Preoperative Comparison: KUB of 11/12/2018 Findings: No radiographically apparent renal calculi. Nonobstructive bowel gas pattern. Radiopaque prostate fiducials. The osseous structures appear unremarkable. Impression: No acute radiographic abnormality. Signed by: Magi Jin MD on 02/11/2019 5:14 PM
[~2019-02-14] MED LIST changes: +AMLODIPINE BESY10 MG PO; +B&O 60MG R/S 60 MG SUPP PR ONE; +CEFTRIAXONE SOD 1 GM/NS 50 ML 50 ML IV ONE; +DEXAMETHASONE SOD PHOS INJ 4 MG/ML VIAL ONE; +FENTANYL CITRATE/PF 100MCG/2 ML INJ ONE; +IOPAMIDOL 300MG/ML 50ML INFUS..BTL IV ONE; +KETOROLAC TROMETHAMINE 30 MG/ML VIAL ONE; +LIDOCAINE HCL 2% LOCAL INJ 5 ML SDV VIAL INJ ONE; +MIDAZOLAM HCL 2 MG/2 ML VIAL ONE; +ONDANSETRON HCL INJ 2MG/ML 2ML 2 MG/ML VIAL ONE; +PROPOFOL IV EMULSION 10 MG/ML 20 ML VIAL ONE; +SEVOFLURANE INHAL SOLN 250 ML PEN BTL ONE
[2019-02-14 09:45] VITALS: BP 128/77
--- NOTE | 2019-04-22 00:49 | Operative Report ---
DATE OF PROCEDURE: 02/14/2019 SURGEON: Kwaku Shields MD POSTOPERATIVE DIAGNOSES: 1. Right nephrolithiasis. 2. Microhematuria. POSTOPERATIVE DIAGNOSES: 1. Right nephrolithiasis. 2. Microhematuria. 3. Urethral stricture disease of the fossa navicularis and bulbar urethra. OPERATIONS PERFORMED: Note these were all staged procedures as part of multi-staged and multi-step process in managing the patient's urolithiasis. 1. Right-sided extracorporeal shockwave lithotripsy (separate procedure performed for the nephrolithiasis done for the separate strokes). 2. Cystourethroscopy with calibration and dilation of urethral stricture (separately performed for the diagnosis of stricture). 3. Cystourethroscopy with bilateral ureteral catheterization and retrograde ureteropyelography (separate procedure performed for the microhematuria). 4. Interpretation of retrograde ureteropyelography. 5. Supervision of fluoroscopy, no radiologist present. ANESTHESIA: General. COMPLICATIONS: None. CLINICAL SUMMARY: Moni Greenwood is a 63-year-old man with the above preoperative diagnoses. He is brought for the above procedures. He is aware of the risks of bleeding, infection, injury to adjacent structures, need for additional procedures and elected to proceed. OPERATIVE PROCEDURE IN DETAIL: Informed consent verified. Moni Greenwood was properly identified, taken to the operating room, placed on the lithotripsy table in supine position. Anesthesia was uneventfully begun. The patient's right nephrolithiasis was localized with biplanar fluoroscopy. A total of 3000 shocks were delivered to the 8 mm right upper calyceal stone with excellent fragmentation noted. The patient was then carefully and gently repositioned in dorsal lithotomy position. All pressure points well padded. His genitalia were prepared and draped in usual sterile fashion. A 22.5-Faroese cystoscope sheath with the visual obturator in place was atraumatically inserted in the patient's urethral meatus. Proximal to urethral meatus at the fossa navicularis there was a stricture. We gently dilated across the stricture utilizing the cystoscope sheath that was calibrated to a 22.5-Faroese in size. The remainder of the urethra was normal until we reached the bulbar region where there was another short stricture. This stricture was approximately 18-Faroese in size. We gently dilated across this stricture as well and then we passed through the prostate bed, which exhibited BPH and into the patient's bladder. Panendoscopy of the bladder revealed no suspicion for lesions, no tumors, no stones, and no diverticula. The right ureteral orifice was patulous in nature. Grade 2 trabeculations were present. An 8-Faroese catheter was used to cannulate each ureter and retrograde ureteropyelograms were performed. Interpretation of retrograde ureteropyelography: Contrast was instilled in retrograde fashion bilaterally. On the left side, there were no tumors, no stones, no diverticula. Unobstructed drainage was observed fluoroscopically. On the right-hand side, there were filling defects in the upper pole of cheng corresponding to stone fragments as well as blood clots from the previously performed lithotripsy. Unobstructed drainage was observed fluoroscopically and there was no hydronephrosis. The patient's bladder was drained. Cystoscope was withdrawn. The belladonna and opium suppositories were placed revealing enlarged prostate that is smooth and non-fluctuant without any nodules. The patient was then uneventfully reversed from anesthesia and taken to recovery room in stable condition. There were no complications to the procedure. He tolerated the procedure well. Plans will be to follow the patient up in the office. We will plan on follow the patient up both for his metabolic stone workup of residual stones remaining as well as uroflowmetry and bladder ultrasonography in managing the patient's BPH and urethral stricture disease. Kwaku Shields MD [place]/GAGAN /[id number] cc: Dr. Bennett Mckenzie
== END | disposition home or self-care (01) ==
LOC: OR 05:00
PROVIDERS: ATTEND Urology
DX: N20.0 Calculus of kidney (principal); N35.812 Other bulbous urethral stricture, male; N40.0 Benign prostatic hyperplasia without lower urinary tract symptoms; N32.89 Other specified disorders of bladder; G47.33 Obstructive sleep apnea (adult) (pediatric); I10 Essential (primary) hypertension; E78.5 Hyperlipidemia, unspecified; E11.9 Type 2 diabetes mellitus without complications; K21.9 Gastro-esophageal reflux disease without esophagitis; Z01.810 Encounter for preprocedural cardiovascular examination; Z01.812 Encounter for preprocedural laboratory examination; Z85.46 Personal history of malignant neoplasm of prostate; Z92.3 Personal history of irradiation
CPT/HCPCS: 36415 ×2; 50590; 52281; 74018; 80048; 82948; 93005; C1758; J0696; J1100; J1885; J2001; J2250; J2405; J2704; J3010; Q9967

== ENCOUNTER → 2019-04-22 | Outpatient (CLI) | payer MEDICARE ==
[~2019-04-22] MED LIST changes: -B&O 60MG R/S 60 MG SUPP PR ONE; -CEFTRIAXONE SOD 1 GM/NS 50 ML 50 ML IV ONE; -DEXAMETHASONE SOD PHOS INJ 4 MG/ML VIAL ONE; -FENTANYL CITRATE/PF 100MCG/2 ML INJ ONE; -IOPAMIDOL 300MG/ML 50ML INFUS..BTL IV ONE; -KETOROLAC TROMETHAMINE 30 MG/ML VIAL ONE; -LIDOCAINE HCL 2% LOCAL INJ 5 ML SDV VIAL INJ ONE; -MIDAZOLAM HCL 2 MG/2 ML VIAL ONE; -ONDANSETRON HCL INJ 2MG/ML 2ML 2 MG/ML VIAL ONE; -PROPOFOL IV EMULSION 10 MG/ML 20 ML VIAL ONE; -SEVOFLURANE INHAL SOLN 250 ML PEN BTL ONE
--- NOTE | 2019-04-22 12:31 | Diagnostic Imaging Report ---
Exam: KUB - 2 views Indication: Renal calculus Comparison: KUB of 02/11/2019 Findings: No radiographically apparent renal calculi. Nonobstructive bowel gas pattern. No free air. Osseous structures appear unremarkable. Prostate fiducials. Impression: No radiographically apparent renal calculi. Signed by: Magi Jin MD on 04/22/2019 12:28 PM
== END ==
LOC: RAD 11:40
PROVIDERS: ATTEND Urology
DX: N20.0 Calculus of kidney (principal)
CPT/HCPCS: 74018

== ENCOUNTER → 2020-12-17 | Outpatient (CLI) | payer MEDICARE | LOC: US 09:48 | PROVIDERS: ATTEND Urology | DX: R31.21 Asymptomatic microscopic hematuria (principal); N20.0 Calculus of kidney | CPT/HCPCS: 74018; 76770 ==

== ENCOUNTER → 2021-02-08 | Outpatient (CLI) | payer MEDICARE | LOC: CT 09:03 | PROVIDERS: ATTEND Urology | DX: N20.0 Calculus of kidney (principal) | CPT/HCPCS: 74176 ==